=== PATIENT | male | born 1995 | race Caucasian/White ===

== ENCOUNTER 2017-05-02 13:04 | Emergency (ER) | payer OTHER ==
[2017-05-02 13:09] VITALS: BP 160/63; PULSE 61; RESP 16; TEMP 99
--- NOTE | 2017-05-02 14:21 | EDPHY ---
H & P Time Seen by Provider: 05/02/17 14:09 HPI/ROS: CHIEF COMPLAINT: Cough HISTORY OF PRESENT ILLNESS: The patient is a 21 y/o male complaining of a cough, onset 1 month ago. A month ago, he developed a cough, rhinorrhea, sore throat, and subjective fever. His sore throat, rhinorrhea, and fever resolved a few weeks ago but his cough has lingered. The cough is productive and is associated with shortness of breath with coughing spasms. He denies current fever, or other associated symptoms. His cough is interrupting his sleep. He reports eating and drinking normally and has normal activity levels. He denies history of asthma or other pulmonary conditions. REVIEW OF SYSTEMS: A 10 point review of systems was performed and is negative with the exception of the elements mentioned in the history of present illness. Past Medical/Surgical History: Denies Social History: Family lives abroad, student at , lives in [place] Smoking Status: Never smoked Physical Exam: General Appearance: Alert, pleasant, well-appearing Eyes: Pupils equal and round, no conjunctival pallor or injection ENT, Mouth: Mucous membranes moist Neck: Normal inspection Respiratory: Lungs are clear to auscultation, no wheezing Cardiovascular: Regular rate and rhythm Neurological: A&O, nonfocal exam Skin: Warm and dry Extremities: Normal inspection Psychiatric: Mood and affect normal Constitutional: Initial Vital Signs Temperature (C) 37.2 C 05/02/17 13:08 Heart Rate 61 05/02/17 13:08 Respiratory Rate 16 05/02/17 13:08 Blood Pressure 160/63 H 05/02/17 13:08 O2 Sat (%) 99 05/02/17 13:08 O2 Delivery Mode Room Air Allergies/Adverse Reactions: No Known Drug Allergies Allergy (Verified 05/02/17 13:09) Home Medications: Medication Instructions Recorded Azithromycin [Zithromax] 250 mg PO DAILY #6 tab 05/02/17 Medical Decision Making ED Course/Re-evaluation: This pt presents with URI sx. I feel pneumonia is unlikely. Without a fever or other symptoms he likely has acute bronchitis. As he is overall improving, I do not feel an X-ray is warranted. I have explained this to him and provided him with an antibiotic prescription if he feels he begins to get worse. He agrees to this course of action. Follow-up instructions and return precautions given. The differential diagnosis for this patient's cough included but was not limited to pneumonia, influenza, upper respiratory infection, and bronchitis. Departure - Departure Disposition: Home, Routine, Self-Care Clinical Impression: Acute bronchitis Qualifiers: Bronchitis organism: unspecified organism Qualified Code(s): J20.9 - Acute bronchitis, unspecified Condition: Good Instructions: Acute Bronchitis (ED) Additional Instructions: 1. If you feel you are getting worse please fill the prescription for antibiotics. Once you start taking antibiotics please take the entire course of antibiotics, even if you feel better before you finish the course. 2. Follow-up with your primary care provider for symptoms that do not improve in 10-14 days or after taking antibiotics. 3. Return to the ED for coughing up blood, fever, or other worsening of condition. Referrals: Tory Saucedo MD [[facility] [place]] - As per Instructions Prescriptions: Azithromycin [Zithromax] 250 mg PO DAILY #6 tab Report Scribed for: Navya Hernandez Report Scribed by: Tiesha Sifuentes Date of Report: 05/02/17 Time of Report: 14:21 Physician Review and Approval Statement: 05/02/17 14:21 Portions of this note were transcribed by a medical billing coordinator. I personally performed a history, physical exam, medical decision making, and confirmed accuracy of information the transcribed note.
[2017-05-02 14:31] VITALS: O2SAT 98
== END 2017-05-02 14:20 | disposition home or self-care (01) ==
DX: J20.9 Acute bronchitis, unspecified (principal)

== ENCOUNTER 2017-09-21 13:07 | Emergency (ER) | payer OTHER ==
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
[2017-09-21 14:30] VITALS: BP 150/65
== END 2017-09-21 14:28 | disposition home or self-care (01) ==
DX: S63.502A Unspecified sprain of left wrist, initial encounter (principal); F17.200 Nicotine dependence, unspecified, uncomplicated; V18.4XXA Pedal cycle driver injured in noncollision transport accident in traffic accident, initial encounter; Y92.410 Unspecified street and highway as the place of occurrence of the external cause; Y99.8 Other external cause status; Y93.55 Activity, bike riding
CPT/HCPCS: L3908

== ENCOUNTER 2018-07-06 11:01 | Emergency (ER) | payer OTHER ==
[2018-07-06 11:08] VITALS: BP 124/81
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
== END 2018-07-06 12:35 | disposition home or self-care (01) ==
DX: J06.9 Acute upper respiratory infection, unspecified (principal); H10.32 Unspecified acute conjunctivitis, left eye